=== PATIENT | male | born 1985 | race Caucasian/White ===

== ENCOUNTER 2024-03-08 19:18 | Emergency (ER) | payer BC ==
[~2024-03-08] VITALS: Ht 182.9 cm; Wt 77.1 kg
[2024-03-08] MEDS ORDERED: KETOROLAC TROMETHAMINE 30 MG VIAL IM STA (20:25)
[2024-03-08] MEDS ORDERED: CEFTRIAXONE SODIUM 1,000 MG VIAL IM STA (20:25)
== END 2024-03-08 22:31 | disposition home or self-care (01) ==
LOC: ER 19:18
DX: L03.90 Cellulitis, unspecified (principal); W45.8XXA Other foreign body or object entering through skin, initial encounter